=== PATIENT | female | born 1975 | race Caucasian/White ===

== ENCOUNTER → 2016-08-21 | Outpatient (CLI) | payer BC ==
[~2016-08-21] MED LIST: AUGMENTIN875 MG PO; FLAGYL-DPS500 MG PO; TYLENOL #3 DPS1 TAB PO
== END | disposition home or self-care (01) ==
LOC: RAD.S 14:23
DX: R92.8 Other abnormal and inconclusive findings on diagnostic imaging of breast (principal)